=== PATIENT | female | born 1950 | race Caucasian/White ===

== ENCOUNTER → 2018-12-29 | Outpatient (CLI) | payer BC ==
[~2018-12-29] MED LIST: AMINOPHYLLINE 250 MG/10 ML VIAL. ONE; REGADENOSON 0.4 MG/5 ML DISP.SYRIN. IV ONE
--- NOTE | 2018-12-29 11:47 | PCVCIMAG ---
APPROVED REPORT Imaging Protocol: Rest Tc-99m/Stress Tc-99m 1 day Study performed: 12/29/2018 08:43:02 Indication: Dyspnea Patient Location: Out-Patient Stress Nurse: Radha Huston RN, Dara Ortiz RN SD Tech:Evangelina Elma [facility] Ht: 5 ft 4 in Wt: 165 lbs BSA: 1.80 m2 HR: 69 bpm BP: 162/71 mmHg BMI: 28.31 Rhythm: Sinus Rhythm with PVC's Medical History Medical History: HTN, COPD, Current Smoker Medications: Bumex Allergies: No known drug allergies Cardiac Risk Factors: Age Pretest Chest Pain Characteristics: No chest pain Exercise History: Physically active Resting Data Rest SPECT myocardial perfusion imaging was performed in supine position 45 minutes following the intravenous injection of 10.9 mCi of Tc-99m Sestamibi. Time of rest injection: 0900 Date: 12/29/2018 Administration Route: IV Administration Site: Right Arm Pharmacologic Stress Pharmacologic stress test was performed by injecting Regadenoson 0.4 mg IV push over 10-15 seconds immediately followed by the intravenous injection of 32.9 mCi of Tc-99m Sestamibi. Time of stress injection: 1015 Date: 12/29/2018 Administration Route: IV Administration Site: Right Arm Gated Stress SPECT was performed 45 minutes after stress injection. The images were gated to evaluate regional wall motion and calculate left ventricular ejection fraction. Stress Test Details Stress Test: Pharmacologic stress testing performed using 0.4 mg of regadenoson per 5 mL given IV over 10 seconds. Reason for pharmacologic stress test: Spinal stenosis. Reversal agent Aminophyline 100 mg, given intravenously for vomiting. HRMax Heart Rate (APMHR): 151 bpm Resting HR: 69 bpmTarget HR (85% APMHR): 128 bpm Max HR Achieved: 111 bpm % of APMHR: 73 Recovery HR: 96 bpm BP Resting BP: 162/71 mmHg Max BP: 250/112 mmHg Recovery BP: 200/91 mmHg ECG Resting ECG: Sinus Rhythm with PVC's Stress ECG: Sinus Tachycardia with PVC's ST Change: Non-ischemic Recovery ECG: Sinus Rhythm with PVC's Clinical Reason for Termination: Completed protocol Stress Symptoms: Dyspnea, Nausea, Emesis, Abdominal discomfort Exercise duration: 0 min 55 sec Symptoms resolved during recovery with aminophylline and caffeine. Study Quality Study: Good Study Data Post stress, the left ventricular ejection was 77%.. SSS: 0 SRS: 1 SDS: 0 TID = 0.87. Perfusion Normal left ventricular perfusion. Normal perfusion on both the stress and rest images. Wall Motion Normal left ventricular wall motion. Nuclear Conclusion ECG Findings: negative for ischemia Clinical Findings: non-diagnostic Nuclear Findings: negative for ischemia Exercise Capacity: not assessed Left Ventricular Function: normal Risk Study: low This study is of low probability for inducible ischemia or prior infarct. Normal global and segmental LV systolic function.
== END | disposition home or self-care (01) ==
LOC: PCVCIMAG 09:46
PROVIDERS: ATTEND Internal Medicine Cardiovascular Disease
DX: J44.9 Chronic obstructive pulmonary disease, unspecified (principal); R06.00 Dyspnea, unspecified; I10 Essential (primary) hypertension; F17.200 Nicotine dependence, unspecified, uncomplicated; R60.9 Edema, unspecified; Z79.899 Other long term (current) drug therapy
CPT/HCPCS: 78452; 93017; A9500; J0280; J2785